=== PATIENT | female | born 2000 | race Caucasian/White ===

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

== ENCOUNTER 2021-02-14 16:40 | Emergency (ER) | payer BC, SELFPAY ==
[2021-02-14 16:40] VITALS: BP 105/85; PULSE 79; RESP 16; TEMP 36.6; O2SAT 100; BMI 21.4
--- NOTE | 2021-02-14 16:52 | EKG12_ITS ---
Test Reason : CP Blood Pressure : / mmHG Vent. Rate : 066 BPM Atrial Rate : 066 BPM P-R Int : 124 ms QRS Dur : 078 ms QT Int : 396 ms P-R-T Axes : 050 084 050 degrees QTc Int : 415 ms Normal sinus rhythm Normal ECG Confirmed by CANDICE MARTINO, EMELY ([id number]), editor dictionary ANGE CHARLES ([id number]) on 02/19/2021 12:13:21 PM Referred By: ZAID Confirmed By:EMELY HARVEY MD
--- NOTE | 2021-02-14 16:52 | RAD_ITS ---
STUDY: X-RAY CHEST REASON FOR EXAM: Female, 20 years old. Chest pain. Nausea and dizziness. TECHNIQUE: Single AP portable view of the chest. COMPARISON: None. FINDINGS: The lungs are clear and expanded. There is no demonstrated pleural abnormality. Normal size heart. Normal mediastinum and pam. Normal visualized pulmonary arteries. Normal visualized aortic arch and descending thoracic aorta. Normal visualized thoracic spine. Normal visualized ribs, clavicles, and shoulders. There is no demonstrated abnormality of the visualized soft tissue structures of the upper abdomen. RAD/Chest 1 View (Portable) IMPRESSION: Normal x-ray examination of the chest. Electronically Signed: Dirk Dowell DO at 18:02 EST Tel [phone], Service support ,
--- NOTE | 2021-02-14 21:50 | EDS_ITS ---
HPI HPI - URI History of Present Illness Chief Complaint: Chest Pain Narrative Narrative: Patient came to the ER with headache, body aches, generalized weakness. She is concerned that she has COVID-19. She reported in triage that she was having chest pain however she states to me she is not. She states that she called off of work and her work requested her to have a positive Covid test or a work note which she had neither. She states he tested negative yesterday for Covid. She is only having mild symptoms. She denies chest pain, palpitations, shortness of breath. She has no abdominal pain, nausea or vomiting. She has no urinary complaints or vaginal complaints. She has no concern for . ROS ROS ED Constitutional Constitutional ED: Reports chills Eyes Eyes: Denies blurry vision or change in vision ENT ENT ED: Reports rhinorrhea; Denies sore throat Cardiovascular Cardiovascular: Denies chest pain or palpitations Respiratory/Chest Respiratory/Chest: Reports cough; Denies dyspnea Gastrointestinal Gastrointestinal: Denies abdominal pain, nausea or vomiting Genitourinary Genitourinary ED: Denies dysuria or hematuria Musculoskeletal Musculoskeletal: Reports myalgias; Denies arthralgias or neck pain Integumentary Denies Abrasions or rash Neurologic Neurologic: Reports headache(s); Denies paresthesias or weakness Psychiatric Psychiatric: Denies anxiety or depression [facility] Medical History Anxiety Depression Home Medications NK 02/14/21 [History Last Taken Unknown] Allergy/AdvReac Type Severity Reaction Status Date / Time No Known Allergies Allergy Verified 02/14/21 17:34 Social History Smoking Status: Current some day smoker tobacco type: cigarettes and e- cigarettes EXAM Physical Exam Const Vital Signs: 02/14/21 16:40 02/14/21 17:32 Temperature 97.9 F Temperature Source Temporal Pulse Rate 79 Respiratory Rate 16 Respiratory Effort Normal Respiratory Pattern Normal Blood Pressure 105/85 H Blood Pressure Mean 91 Pulse Ox 100 Oxygen Delivery Method Room Air Positive well nourished General Appearance ED: NAD; Negative for pallor HEENT Reports moist mucous membranes normocephalic and atraumatic Eyes PERRL and EOMs intact bilaterally Neck no lymphadenopathy, supple and no meningeal signs Resp normal respiratory effort and clear to auscultation bilaterally Cardio Rate: regular rate Rhythm: regular rhythm GI non-tender Palpation: soft Back/Spine no CVA tenderness and normal ROM Neuro oriented x3 and CN's II-XII intact bilaterally Sensorium / Orientation: alert Psych mental status grossly normal Skin General Skin Exam: Negative for jaundice or pallor Lesions: no lesions Rashes: no rashes MDM MDM MDM Narrative Medical decision making narrative: Patient presenting with mild symptoms of COVID-19. Her physical exam is completely normal. She requests a COVID-19 test and she will receive a Covid PCR send out. She is to quarantine at home until results return and then if she is positive continue to quarantine for the full 10 days and 48 hours symptom-free. She is given return precautions. Patient stable for discharge. Impression: 1. Viral Radiography Diagnostic Testing: Clinical Impression(s) from Imaging Studies Chest X-Ray 02/14/21 16:52 IMPRESSION: Normal x-ray examination of the chest. Electronically Signed: Dirk Dowell DO at 18:02 EST Tel [phone], Service support , Discharge Plan Triage Chief Complaint: Chest Pain ED Provider: Nathan Piper Dx/Rx/DC Orders Instructions: Coronavirus Disease 2019 (COVID-19): Caring for Yourself or Others Prescriptions: No Action NK RF: 0 Stand Alone Forms: ED Work / School Excuse Primary Care Provider: Care Physician,No Primary Referrals: Brandie Horowitz DO [NON-STAFF] - As soon as possible Care Physician,No Primary [Primary Care Provider] - Disposition Disposition: Home, Self Care Discharge Date/Time: 02/14/21 18:55
== END 2021-02-14 18:55 | disposition home or self-care (01) ==
LOC: ED 18:39
PROVIDERS: Emergency Provider Student in an Organized Health Care Education/Training Program
DX: R07.9 Chest pain, unspecified (principal); Z20.822 Contact with and (suspected) exposure to COVID-19; R51.9 Headache, unspecified; R53.1 Weakness; F17.210 Nicotine dependence, cigarettes, uncomplicated
CPT/HCPCS: 71045; 87635; 93005; 99282; U0003; U0005